=== PATIENT | female | born 1995 | race American Indian/Alaskan Native ===

== ENCOUNTER 2019-03-06 22:16 | Emergency (ER) | payer MEDICAID ==
[2019-03-06] MEDS ORDERED: Albuterol 6.7 GM Inhaler INH ONE (22:17)
[2019-03-06] MEDS ORDERED: predniSONE 20 MG Tab PO ONE (22:17)
--- NOTE | 2019-03-06 23:43 | EDM.PDOC ---
ED HPI GENERAL MEDICAL PROBLEM - General Chief Complaint: Asthma Stated Complaint: BREATHING DIFFICULTIES Time Seen by Provider: 03/06/19 23:24 Source of Information: Reports: Patient, RN, RN Notes Reviewed History Limitations: Reports: No Limitations - History of Present Illness INITIAL COMMENTS - FREE TEXT/NARRATIVE: 23 year old female who presents to the ER with mild SOB and wheezing. She reports a history of Asthma and has been out of her albuterol inhaler one day ago. States she has been using her albuterol inhaler daily as she forgot her Advair when she moved to [place] one week ago. She reports wheezing has been present all day and she was not able to get into the clinic for an inhaler. Denies smoking cigarettes. Denies any URI symptoms. - Related Data Allergies Allergy/AdvReac Type Severity Reaction Status Date / Time No Known Allergies Allergy Verified 03/06/19 23:33 Home Meds: Home Meds Albuterol Sulfate [Albuterol Sulfate Hfa] 1 puff IN PRN 03/06/19 [History] ED ROS GENERAL - Review of Systems Review Of Systems: ROS reveals no pertinent complaints other than HPI. Constitutional: Reports: No Symptoms HEENT: Reports: No Symptoms Respiratory: Reports: Wheezing Cardiovascular: Reports: No Symptoms Psychiatric: Reports: No Symptoms ED EXAM, GENERAL - Physical Exam Exam: See Below Exam Limited By: No Limitations General Appearance: Alert, WD/WN, Mild Distress Ears: Normal External Exam, Normal Canal, Hearing Grossly Normal, Normal TMs Nose: Normal Inspection, Normal Mucosa, No Blood Throat/Mouth: Normal Inspection, Normal Lips, Normal Teeth, Normal Gums, Normal Oropharynx, Normal Voice, No Airway Compromise Head: Atraumatic, Normocephalic Neck: Normal Inspection, Supple, Non-Tender, Full Range of Motion Respiratory/Chest: Wheezing (diffused wheezing noted in all lobes) Cardiovascular: Normal Peripheral Pulses, Regular Rate, Rhythm, No Edema, No Gallop, No JVD, No Murmur, No Rub Psychiatric: Normal Affect, Normal Mood Course - Vital Signs Last Recorded V/S: Last Vital Signs Temp 97.8 F 03/06/19 23:37 Pulse 91 03/06/19 23:37 Resp 18 03/06/19 23:37 BP 130/76 03/06/19 23:37 Pulse Ox - Orders/Labs/Meds Meds: Medications Discontinued Medications Generic Name Dose Route Start Last Admin Trade Name Brit PRN Reason Stop Dose Admin Albuterol Confirm 03/06/19 23:29 03/06/19 23:47 Proventil Neb Soln Administered 03/06/19 23:30 2.5 mg Dose Administration 2.5 mg .ROUTE .STK-MED ONE Albuterol Confirm 03/07/19 00:09 03/07/19 00:17 Proventil Hfa Administered 03/07/19 00:10 Not Given Dose 6.7 gm INH .STK-MED ONE Prednisone 20 mg 03/06/19 23:55 03/07/19 00:17 Prednisone PO 03/06/19 23:56 20 mg ONETIME ONE Administration Prednisone Confirm 03/07/19 00:09 03/07/19 00:17 Prednisone Administered 03/07/19 00:10 Not Given Dose 80 mg .ROUTE .STK-MED ONE - Re-Assessments/Exams Free Text/Narrative Re-Assessment/Exam: Patient presented to the ER with SOB and wheezing. Ran out of her albuterol inhaler one day ago. Albuterol Neb and prednisone 20 mg administered with relief. Patient send home with an Albuterol inhaler and prednisone 20 mg x 4 tablets. Encouraged to follow up in the clinic in one day. Patient verbalized understanding. Departure - Departure Time of Disposition: 01:45 Disposition: Home, Self-Care 01 Condition: Good Clinical Impression: Asthma attack Qualifiers: Asthma severity: mild Asthma persistence: intermittent Qualified Code(s): J45.21 - Mild intermittent asthma with (acute) exacerbation - Discharge Information *PRESCRIPTION DRUG MONITORING PROGRAM REVIEWED*: Not Applicable *COPY OF PRESCRIPTION DRUG MONITORING REPORT IN PATIENT MARY: Not Applicable Instructions: Asthma, Adult, [id number] Referrals: PCP,None [Primary Care Provider] - Forms: ED Department Discharge Additional Instructions: Encouraged to follow up to get a PCP and refilled her advair. Symptoms to returned reviewed with patient.
[2019-03-06] MEDS: Albuterol 0.083% 2.5 MG/3 ML Neb Soln ONE (23:47)
[2019-03-07] MEDS: predniSONE 20 MG Tab ONE (00:17)
[2019-03-07] MEDS: predniSONE 20 MG Tab PO ONE (00:17)
[2019-03-07] MEDS: Albuterol 6.7 GM Inhaler INH ONE (00:17)
== END 2019-03-07 00:22 | disposition home or self-care (01) ==
LOC: DL.ED 22:16
DX: J45.21 Mild intermittent asthma with (acute) exacerbation (principal)
CPT/HCPCS: 99284; A9270-GY; J7613-GY